=== PATIENT | male | born 1950 | race Hispanic/Latino ===

== ENCOUNTER 2024-04-11 15:48 | Emergency (ER) | payer OTHER ==
[2024-04-11] MEDS ORDERED: ATROPINE SULF 1 MG/10 ML SYR IV ONE (16:18)
[2024-04-11 16:25] LABS: Absolute Eosinophils 0.2 K/uL (0-0.5); Absolute Lymphocytes (CBC) 2.6 K/uL (0.7-4.9); Absolute Monocytes 0.6 K/uL (0.1-1.3); Basophils % 0.5 % (0-1.3); Eosinophils % 2.6 % (0-4.4); Hematocrit 43.7 % (39.6-49.0); Lymphocytes % 30.8 % (15.3-44.8); MCH 29.3 pg (27.0-35.0); MCHC 34.3 g/dL (32.0-36.0); MCV 85.4 fL (80-100); MPV 7.7 fL (7.6-11.3); Neutrophils % 59.1 % (41.7-73.7); Nucleated Red Blood Cells % 0.1 % (0-0); Platelets 353 thou/uL (152-406); RBC Red Blood Cell Count 5.11 M/uL (4.33-5.43); Red Cell Distribution Width 15.1 % (12.1-15.2)
[2024-04-11 16:26] LABS: PT Prothrombin Time 12.9 SECONDS (9.4-12.5); Protime INR 1.16
--- NOTE | 2024-04-11 16:38 | RAD REPORT ---
EXAM DESCRIPTION: RAD - Chest Single View - 04/11/2024 4:31 pm CLINICAL HISTORY: dizzy, bradycardic Chest pain. COMPARISON: No comparisons FINDINGS: Portable technique limits examination quality. The lungs are grossly clear. The heart is mildly enlarged in size. No displaced fractures. IMPRESSION: No acute intrathoracic process suspected.
[2024-04-11 16:40] LABS: Anion Gap 8.1 mEq/L (5.0-15.0); Potassium 4.1 mEq/L (3.5-5.1); Troponin High Sensitivity 26.8 pg/mL (<58.9)
--- NOTE | 2024-04-11 16:41 | ER ---
Nurse's Notes [facility] Name: Casey Villegas Age: 73 yrs Sex: Male : 1950 Arrival Date: 04/11/2024 Time: 15:48 Bed 3 Private MD: Diagnosis: Bradycardia, unspecified;3rd degree heart block Presentation: 04/11 16:00 Chief complaint: Patient states: Found low HR 36-[address] Norton office today. Was ll1 going there for knee pain/gout. Coronavirus screen: Client denies travel out of the [place] in the last 14 days. At this time, the client does not indicate any symptoms associated with coronavirus-19. Ebola Screen: Patient denies travel to an Ebola-affected area in the 21 days before illness onset. Initial Sepsis Screen: Does the patient meet any 2 criteria? No. Patient's initial sepsis screen is negative. Does the patient have a suspected source of infection? No. Patient's initial sepsis screen is negative. Risk Assessment: Do you want to hurt yourself or someone else? Patient reports no desire to harm self or others. Onset of symptoms was April 11, 2024. 16:00 Method Of Arrival: Ambulatory ll1 16:00 Acuity: MADELEINE 2 ll1 Triage Assessment: 16:01 General: Appears in no apparent distress. Behavior is calm, cooperative, appropriate ll1 for age. Pain: Complains of pain in L knee Pain currently is 6 out of 10 on a pain scale. Quality of pain is described as aching. Cardiovascular: Reports low HR 36-40 Denies chest pain. Musculoskeletal: Reports pain in L knee. Historical: - PMHx: 15:59 Gout; ll1 - Immunization history:: Adult Immunizations up to date. - Social history:: Smoking status: Patient denies any tobacco usage or history of. - Family history:: not pertinent. - Hospitalizations: : No recent hospitalization is reported. Screenin:18 [facility] ED Fall Risk Assessment (Adult) History of falling in the last 3 months, cm10 including since admission No falls in past 3 months (0 pts) Confusion or Disorientation No (0 pts) Intoxicated or Sedated No (0 pts) Impaired Gait No (0 pts) Mobility Assist Device Used Yes (1 pt) Altered Elimination No (0 pt) Score/Fall Risk Level 0 - 2 = Low Risk Oriented to surroundings, Maintained a safe environment, Hourly rounding (assess needs \T\ fall precautionary measures) done. Abuse screen: Denies threats or abuse. Denies injuries from another. Nutritional screening: No deficits noted. Tuberculosis screening: No symptoms or risk factors identified. Assessment: 16:17 General: Pt placed on Zoll. cm10 18:20 Reassessment: Report called to JAIME Allison at [facility] ph Vital Signs: 16:00 BP 199 / 77; Pulse 36; Resp 17; Temp 97.2; Pulse Ox 99% ; Pain 6/10; ll1 16:30 BP 195 / 97; Pulse 36; Resp 18; Pulse Ox 99% on R/A; ph 17:00 BP 184 / 81; Pulse 35; Resp 18; Pulse Ox 98% on R/A; ph 17:30 BP 181 / 75; Pulse 34; Resp 18; Pulse Ox 98% on R/A; ph 18:09 BP 171 / 78; Pulse 35; Resp 18; Temp 97.2; Pulse Ox 97% on R/A; ph 16:00 Pain Scale: Adult ll1 ED Course: 15:51 Patient arrived in ED. mr 15:53 Matthew Hernandez MD is Attending Physician. rn 15:59 Arm band placed on. ll1 16:01 Triage completed. ll1 16:16 Basic Metabolic Panel Sent. cm10 16:16 CBC with Diff Sent. cm10 16:16 NT PRO-BNP Sent. cm10 16:16 PT-INR Sent. cm10 16:16 Troponin HS Sent. cm10 16:16 Initial lab(s) drawn, by ca, sent to lab. EKG done, by ED staff, reviewed by Matthew Hernandez MD. Inserted saline lock: 18 gauge in right antecubital area, using aseptic technique. Blood collected. Flushed with 10 mL NS. 16:18 Patient has correct armband on for positive identification. Placed in gown. Bed in low cm10 position. Call light in reach. Side rails up X2. Client placed on continuous cardiac and pulse oximetry monitoring. NIBP monitoring applied. 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 16:22 Daiana Gutierrez, JAIME is Primary Nurse. kj2 16:22 Inserted saline lock: 18 gauge in left antecubital area, using aseptic technique. kj2 16:33 XRAY Chest (1 view) In Process Unspecified. EDMS 16:42 initiated transfer to [facility]. bd 18:24 pt accepted in transfer to [facility] by dr Carnes, admin approval given by lamar Carnes. to be transfer by angela. Administered Medications: 16:20 Drug: Atropine IVP 0.5 mg IVP once Route: IVP; Site: right antecubital; cm10 Outcome: 16:40 ER care complete, transfer ordered by . rn 19:08 Patient left the ED. ph Signatures: Dispatcher [employer] EDMS Elvia Torres bd Quiñonez, Mallory, Reg Reg mr Matthew Hernandez MD MD rn Hall, Patricia, RN RN ph Alfredo Cho RN RN 1 Yolie Cox RN RN cm10 Daiana Gutierrez RN RN kj2
--- NOTE | 2024-04-11 16:41 | EDPHYS ---
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 16:11 Onset: The symptoms/episode began/occurred at an unknown time. Modifying factors: The rn symptoms are aggravated by nothing. The symptoms are alleviated by nothing. Severity of symptoms: At their worst the symptoms were moderate in the emergency department the symptoms are unchanged. It is unknown whether or not the patient has had similar symptoms in the past. The patient has not recently seen a physician. Patient was going to normal visit today, sent here when heart rate was in the 30s. Sent by private vehicle. Patient reports intermittent slight dizziness but nothing bad. No syncopal episodes. No chest pain. No shortness of breath. No medication changes. No known heart disease.. Historical: - PMHx: 15:59 Gout; ll1 - Immunization history:: Adult Immunizations up to date. - Social history:: Smoking status: Patient denies any tobacco usage or history of. - Family history:: not pertinent. - Hospitalizations: : No recent hospitalization is reported. ROS: 16:20 Constitutional: Negative for fever, chills, and weight loss, Cardiovascular: Negative rn for chest pain, palpitations, and edema, Respiratory: Negative for cough, wheezing, and pleuritic chest pain, Abdomen/GI: Negative for abdominal pain, nausea, vomiting, diarrhea, and constipation, MS/Extremity: Negative for injury and deformity, Skin: Negative for injury, rash, and discoloration, Neuro: Negative for headache, weakness, numbness, tingling, and seizure, Exam: 16:20 Constitutional: This is a well developed, well nourished patient who is awake, alert, rn and in no acute distress. Cardiovascular: Regular rate, bradycardic. Respiratory: No increased work of breathing, no retractions or nasal flaring. Abdomen/GI: Soft, non-tender MS/ Extremity: Pulses equal, no cyanosis Neuro: Awake and alert, GCS 15 19:14 ECG was reviewed by the Attending Physician. rn Vital Signs: 16:00 BP 199 / 77; Pulse 36; Resp 17; Temp 97.2; Pulse Ox 99% ; Pain 6/10; ll1 16:30 BP 195 / 97; Pulse 36; Resp 18; Pulse Ox 99% on R/A; ph 17:00 BP 184 / 81; Pulse 35; Resp 18; Pulse Ox 98% on R/A; ph 17:30 BP 181 / 75; Pulse 34; Resp 18; Pulse Ox 98% on R/A; ph 18:09 BP 171 / 78; Pulse 35; Resp 18; Temp 97.2; Pulse Ox 97% on R/A; ph 16:00 Pain Scale: Adult ll1 MDM: 15:53 Patient medically screened. rn 16:37 Differential diagnosis: arrythmia, dehydration, stress disorder, Second-degree heart rn block, third-degree heart block. Data reviewed: vital signs, nurses notes, EKG, and as a result, I will admit patient. Consideration of Admission/Observation Patient was admitted/placed on observation. Escalation of care including admission/observation considered. Management of patient was discussed with the following: Prefabricator: Discussed case with Dr. Engle, recommends transfer for complete heart block and need for pacemaker. Counseling: I had a detailed discussion with the patient and/or guardian regarding the historical points, exam findings, and any diagnostic results supporting the discharge/admit diagnosis, the need to transfer to another facility. Response to treatment: There is no appreciated change of the patient's symptoms at this time. ED course: I personally spent 35 minutes engaged in work directly related to the individual patient's care. This does not include any time spent performing procedures. The patient has been deemed critically ill because of complete heart block, bradycardia in the 30s, organization of transfer for pacemaker and cardiology consultation.. 04/11 16:05 Order name: Basic Metabolic Panel; Complete Time: 16:46 rn 04/11 16:05 Order name: CBC with Diff; Complete Time: 16:46 rn 04/11 16:05 Order name: NT PRO-BNP; Complete Time: 16:46 rn 04/11 16:05 Order name: PT-INR; Complete Time: 16:46 rn 04/11 16:05 Order name: Troponin HS; Complete Time: 16:46 rn 04/11 16:05 Order name: XRAY Chest (1 view) rn 04/11 16:05 Order name: Cardiac monitoring; Complete Time: 16:16 rn 04/11 16:05 Order name: EKG - Nurse/Tech; Complete Time: 16:16 rn 04/11 16:05 Order name: IV Saline Lock; Complete Time: 16:16 rn 04/11 16:05 Order name: Labs collected and sent; Complete Time: 16:16 rn 04/11 16:05 Order name: O2 Per Protocol; Complete Time: 16:16 rn 04/11 16:05 Order name: O2 Sat Monitoring; Complete Time: 16:16 rn EC:14 Rate is 35 beats/min. Rhythm is irregular. QRS [place] is Normal. QRS interval is rn prolonged at 150 msec. T waves are Inverted in leads II, III, aVF, V4, V5, V6. No ST changes noted. Clinical impression: 3rd degree heart block. Interpreted by me. Reviewed by me. Administered Medications: 16:20 Drug: Atropine IVP 0.5 mg IVP once Route: IVP; Site: right antecubital; cm10 Disposition Summary: 04/11/24 16:40 Transfer Ordered Notes: Transfer Location: 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 Total time: 35 rn minutes Signatures: Dispatcher [employer] EDMS Matthew Hernandez MD MD rn Hall, Patricia RN RN ph Alfredo Cho, RN RN [email or web address] Yolie Cox, RN RN cm10 Corrections: (The following items were deleted from the chart) 16:06 16:06 BASIC METABOLIC PANEL+C.LAB.BRZ ordered. EDMS EDMS 16:06 16:06 CBC+H.LAB.BRZ ordered. EDMS EDMS 16:06 16:06 PROBNP+C.LAB.BRZ ordered. EDMS EDMS 16:06 16:06 PROTIME (+INR)+COAG.LAB.BRZ ordered. EDMS EDMS 16:06 16:06 Troponin High Sensitivity+C.LAB.BRZ ordered. EDMS EDMS 16: 16:06 Chest Single View+RAD.RAD.BRZ ordered. EDMS EDMS : 16:40 Dr. del rosario ph
[2024-04-11 20:04] VITALS: TEMP 97.2
[2024-04-11 20:08] VITALS: BP 171/78; O2SAT 97
--- NOTE | 2024-04-13 14:45 | EKG ---
Test Date: 2024-04-11 Test Time: 16:11:39 Cloth Desizing Range Operator Chief: ELIUD MEASUREMENT RESULTS: Intervals: Rate: 35 [place]: QRSD: 150 QT: 642 QTc: 490 [place]: P: 56 [place]: QRS: 60 T: -68 INTERPRETIVE STATEMENTS: Sinus rhythm with complete heart block and Idioventricular rhythm Nonspecific intraventricular block Abnormal ECG No previous ECG available for comparison Electronically Signed On 04-13-24 14:41:36 CDT by Fan Engle
== END 2024-04-11 19:08 | disposition short-term general hospital (02) ==
LOC: ER 15:48
DX: I44.2 Atrioventricular block, complete (principal)
CPT/HCPCS: 93005; 85025; 80048; 36415; 85610; 84484; 83880; 71045; 96374; 99285; J0461